=== PATIENT | female | born 1935 | race Caucasian/White ===

== ENCOUNTER 2017-10-29 17:05 | Inpatient (IN) | payer OTHER ==
[~2017-10-29] VITALS: Ht 149.9 cm; Wt 49.0 kg
--- NOTE | ~2017-10-29 | HC ---
[facility] [place] [address] CONSULTATION Name: KATHRYN KATZ Room #: 406-P [facility] M.R.#: [id number] Admission: 10/29/17 Attend Phys: Doni Napoles MD Discharge: 10/31/17 Date of : 31 Report #: [id number] THIS REPORT FOR: //name// CC: Doni Crabtree DATE OF SERVICE: 10/31/2017 REQUESTING PHYSICIAN: Baudilio Pickard DO CHIEF COMPLAINT: Back pain. HISTORY OF PRESENT ILLNESS: The patient is an 82-year-old female who initially presented on 10/29 with increasing back pain as well as increasingly stooped posture. The patient reportedly had 2 vertebral fractures in April, at which time she was evaluated for a cerebrovascular accident. The patient has subsequently been found here to have 4 additional fractures of unknown duration. The patient is no longer interested in kyphoplasty. She did have 2 performed in April and would like to discuss the possibility of palliative care options. Of note, the patient has a 1.8 albumin. She has wounds on her sacrum, has had decreased p.o. intake over several months' time including weight loss. The patient has had dysphagia to solids and has had difficulty with getting pills down. The patient also has again severe osteoporosis with multiple fractures of the spine. The patient reports that her biggest issue at this current point in time is pain. She denies any anxiety. She denies any constipation. She denies any other problems at this current point in time. ALLERGIES: TIZANIDINE. PAST MEDICAL HISTORY: Significant for vertebral fractures, also temporal CVA in 04/2017. She has had history of paroxysmal atrial fibrillation, also pulmonary fibrosis and dysphagia. PAST SURGICAL HISTORY: Vertebroplasty x 2, appendectomy. SOCIAL HISTORY: Previously at [facility], actually a daughter is involved in her care, Aby Feng. Additionally, the patient is currently DNR/DNI status and this is confirmed. Does not have any smoking, alcohol, illicit drug use history. MEDICATIONS: Fentanyl 25 mcg patch, lidocaine patch, Plavix 75 mg daily, aspirin 81 mg daily, Elavil 10 mg at bedtime, potassium chloride 10 mEq daily, Lasix 40 mg daily, Flexeril and Aldactone 50 mg daily. PRIMARY CARE PHYSICIAN: Mat Turner MD [address] [address] CONSULTATION Name: KATHRYN KATZ Room #: 406-P [facility] IN ..#: [id number] Admission: 10/29/17 Attend Phys: Doni Napoles MD Discharge: 10/31/17 Date of : 31 Report #: [id number] FAMILY HISTORY: Noncontributory. REVIEW OF SYSTEMS: GENERAL: Denies any fevers or chills. Does report recent weight loss. HEENT: Denies any visual changes. Denies any particular hearing loss. CARDIOVASCULAR: Denies chest pain, palpitations or edema. MUSCULOSKELETAL: Does report bilateral heel pain. Additionally, she reports back pain throughout her spine. ABDOMEN: Denies constipation, nausea, vomiting or diarrhea. Her last bowel movement was yesterday. PHYSICAL EXAMINATION: VITAL SIGNS: Temperature 36.7, pulse 91, respirations 18, blood pressure 80/48, 90% on room air. GENERAL: The patient is alert, although frequently falling asleep during my interview. She alerts to verbal stimuli and will respond to questions. She appears to be in moderate to severe pain at portions of time. HEENT: Extraocular muscles are intact. No scleral icterus, no conjunctival injection. CARDIOVASCULAR: Regular rate and rhythm without murmur. LUNGS: Clear to auscultation bilateral. No wheezes, rales or rhonchi. ABDOMEN: Soft. Diminished bowel sounds noted throughout, but nontender to palpation at this time. MUSCULOSKELETAL: She has exquisite tenderness to bilateral heel areas. LABORATORY DATA: These included hemoglobin 11.9, platelets 251. Creatinine 0.5. Albumin 1.8. AST 39, ALT 20. ASSESSMENT AND PLAN: 1. Multiple thoracic and lumbar fractures. At this current point in time, I believe she would benefit most from the addition of steroids. We will add dexamethasone as less associated with edema, start 10 mg IV loading dose. In addition, we will start twice daily 8 mg p.o. liquid formulation due to dysphagia. Additionally, we will start naproxen 500 mg twice daily, also liquid formulation. We will watch over the next 24 hours her current dosing regimen with regards to pain medication to ensure we can achieve a pain regimen outpatient. Would recommend at which time we have determined what she will need to switch to oral either liquid oxycodone or liquid morphine in addition to her fentanyl patch and also in addition to medications as previously noted. I am holding aspirin and her potassium chloride for gastrointestinal discomfort. We will continue Plavix given her stroke history. We will continue lidocaine patch. Discussed follow up in a.m. with regards to this. Discussed approximately for 25 minutes what hospice would entail. The patient's family and the patient are interested in meeting with hospice provider who are meeting with them today. They are considering inpatient hospice and I did discuss that [address] [address] CONSULTATION Name: KATHRYN KATZ Room #: 406-P [facility] .R.#: [id number] Admission: 10/29/17 Attend Phys: Doni Napoles MD Discharge: 10/31/17 Date of : 31 Report #: [id number] this may be a short-term stay in order to manage pain. I do believe she will qualify for her severe protein calorie malnutrition given her wounds, her albumin status and her decreased p.o. intake. I do believe the patient would benefit from more definitive pain management and will of course make adjustments depending on what her 24-hour morphine equivalents have shown with the addition of other medication. 2. Protein calorie malnutrition. As previously discussed, I believe this is due to a variety of factors including dysphagia as well as overall opiate use for pain management. I believe the patient to qualify for hospice based on this factor alone. She does also have pulmonary fibrosis, although the severity does not at this current point in time appear to warrant as well as her protein calorie malnutrition. 3. Pulmonary fibrosis. No doubt contributing to overall prognosis, appreciate primary team's recommendations on this. 4. Sacral wounds. Address per wound care team. I will continue to follow with the patient. I do think that there is opportunity for further medication adjustment if necessary for pain control at this time. I do believe that inpatient hospice care would be an appropriate measure. I did discuss that these measures and the possibility of future outpatient once pain has been stabilized more adequately. By: [id number] Jj Curry DO /nt
[2017-10-29 17:05] VITALS: BP 133/74
[~2017-10-29 17:05] MED LIST: ACCUNEB SO1.25 MG/1 INH; ADULT LOW DOSE81 MG PO; ALENDRONATE SOD10 MG PO; ALEVE220 MG PO; AZITHROMYCIN 2250 MG PO; AZO95 MG PO; BACTRIM DS TAB1 EACH PO; BONIVA; CELEBREX 200 M200 M1 PO; CIPROFLOXACIN500 M1 PO; CLOPIDOGREL75 MG PO; COLACE100 MG PO; FLAGYL500 MG PO; LAMISIL250 MG PO; MIRALAX17 GM PO; MOBIC15 MG PO; NORCO 5-325 TA1 EACH PO; OMEPRAZOLE 20 M20 M1 PO; SENOKOT-S1 TA1 PO; SPIRONOLACTONE50 MG PO; ZOFRAN ODT4 MG PO
[2017-10-29] MEDS ORDERED: AMITRIPTYLINE H10 M3 PO (17:45)
[2017-10-29] MEDS ORDERED: LASIX 40 MG TAB40 M2 PO (17:46)
[2017-10-29] MEDS ORDERED: K-DUR10 MEQ PO (17:47)
[2017-10-29] MEDS ORDERED: HYDROCODONE-AP1 EAC6 PO (17:47)
[2017-10-29] MEDS ORDERED: VITAMIN E400 UNIT PO (17:48)
[2017-10-29] MEDS ORDERED: CYCLOBENZAPRINE5 MG PO (17:49)
[2017-10-29] MEDS ORDERED: FLONASE 0.05%50 MCG NASAL (17:49)
[2017-10-29] MEDS ORDERED: DURAGESIC25 MCG/HR TRANSDERM (17:50)
[2017-10-29 20:40] LABS: ABSOLUTE NEUTROPHILS 9.2 thou/uL (1.4-8.2); BASOPHILS 0.8 % (0.0-2.0); EOSINOPHILS 0.1 % (0.0-3.0); HEMATOCRIT 43.6 % (37.0-47.0); LYMPHOCYTES 8.7 % (24.0-44.0); MCH 34.2 pg (26.0-34.0); MCHC 34.4 g/dL (28.0-37.0); MCV 99.4 fL (80.0-100.0); MONOCYTES 8.9 % (1.0-8.0); PLATELET COUNT 333 thou/uL (150-400); POLYS 81.5 % (36.0-66.0); RBC 4.39 mil/uL (4.20-5.00); RDW 14.1 % (10.5-14.5); WBC 11.3 thou/uL (4.0-11.0)
[2017-10-29 20:47] LABS: CALCIUM 8.9 mg/dL (8.5-10.1); CREATININE 0.8 mg/dL (0.6-1.0); POTASSIUM 4.1 mmol/L (3.5-5.1)
[2017-10-29 20:53] LABS: ALBUMIN 2.6 g/dL (3.4-5.0); DIRECT BILIRUBIN 0.8 mg/dL (<0.1-0.3); MAGNESIUM 1.7 mg/dL (1.8-2.4); TOTAL BILIRUBIN 1.3 mg/dL (<0.1-1.0); TOTAL PROTEIN 6.9 g/dL (6.4-8.2)
[2017-10-29 21:59] LABS: URINE BLOOD 2+ (Negative); URINE CLARITY SL CLOUDY; URINE GLUCOSE-RANDOM* NEGATIVE (Negative); URINE KETONES 1+ (Negative); URINE LEUKOCYTES-REFLEX NEGATIVE (Negative); URINE NITRITE-REFLEX NEGATIVE (Negative); URINE PROTEIN (DIPSTICK) NEGATIVE (Negative)
[2017-10-29 22:01] VITALS: BP 104/59
[2017-10-29 22:02] LABS: ICTOTEST (BILI CONFIRMATORY) Negative (Negative); URINE BILIRUBIN NEGATIVE (Negative); URINE COLOR DARK YELLOW
[2017-10-29 22:13] LABS: CRYSTALS None Seen /LPF (None Seen); SQUAMOUS 0-3 Few /LPF (0-3); URINE WBC-REFLEX 0-5 Rare /HPF (0-5)
[2017-10-29 22:14] LABS: BACTERIA-REFLEX 1-9 Few /HPF (None Seen); HYALINE CASTS 4-10 Moderate /LPF (None Seen); MUCUS 4-6 Moderate strn/LPF (None Seen)
[2017-10-30 03:41] VITALS: BP 96/49
[2017-10-30 08:10] VITALS: BP 102/56
[2017-10-30 16:00] VITALS: BP 81/44
[2017-10-30 20:00] VITALS: BP 90/44
[2017-10-31 04:00] VITALS: BP 98/43
[2017-10-31 05:26] LABS: ABSOLUTE NEUTROPHILS 3.5 thou/uL (1.4-8.2); BASOPHILS 0.2 % (0.0-2.0); EOSINOPHILS 3.8 % (0.0-3.0); HEMATOCRIT 34.6 % (37.0-47.0); LYMPHOCYTES 26.3 % (24.0-44.0); MCH 34.4 pg (26.0-34.0); MCHC 34.4 g/dL (28.0-37.0); MONOCYTES 13.8 % (1.0-8.0); POLYS 55.9 % (36.0-66.0); RBC 3.46 mil/uL (4.20-5.00); WBC 6.3 thou/uL (4.0-11.0)
[2017-10-31 05:38] LABS: CALCIUM 8.2 mg/dL (8.5-10.1); CREATININE 0.5 mg/dL (0.6-1.0); POTASSIUM 3.4 mmol/L (3.5-5.1)
[2017-10-31 05:39] LABS: HEMOGLOBIN 11.9 gm/dL (12.0-15.0); PLATELET COUNT 251 thou/uL (150-400)
[2017-10-31 08:46] VITALS: BP 80/48
[2017-10-31 11:26] LABS: ALBUMIN 1.8 g/dL (3.4-5.0); MAGNESIUM 1.7 mg/dL (1.8-2.4); TOTAL BILIRUBIN 0.9 mg/dL (<0.1-1.0); TOTAL PROTEIN 4.9 g/dL (6.4-8.2)
[2017-10-31] MEDS ORDERED: BISACODYL SUPP10 MG RECTAL (16:19)
[2017-10-31] MEDS ORDERED: DEXAMETHASONE 44 M1 PO (16:19)
[2017-10-31] MEDS ORDERED: ONDANSETRON HCL4 M1 IV PUSH (16:19)
[2017-10-31] MEDS ORDERED: MIRALAX17 GM PO (16:19)
[2017-10-31] MEDS ORDERED: LIDOPATCH1 EACH TRANSDERM (16:19)
[2017-10-31 18:37] VITALS: BP 69/34
== END 2017-10-31 18:00 | disposition hospice, inpatient (51) | DRG 542 ==
LOC: ER 17:05 → EROBS 20:35 → 4N 20:35
PROVIDERS: Emergency Medicine; Hospitalist
DX: M48.56XA Collapsed vertebra, not elsewhere classified, lumbar region, initial encounter for fracture (principal); E43 Unspecified severe protein-calorie malnutrition; M48.54XA Collapsed vertebra, not elsewhere classified, thoracic region, initial encounter for fracture; I48.0 Paroxysmal atrial fibrillation; J84.10 Pulmonary fibrosis, unspecified; Z66 Do not resuscitate; L89.221 Pressure ulcer of left hip, stage 1; L89.211 Pressure ulcer of right hip, stage 1; L89.151 Pressure ulcer of sacral region, stage 1; Z86.73 Personal history of transient ischemic attack (TIA), and cerebral infarction without residual deficits; Z90.49 Acquired absence of other specified parts of digestive tract; Z68.21 Body mass index [BMI] 21.0-21.9, adult; Z79.51 Long term (current) use of inhaled steroids; Z79.82 Long term (current) use of aspirin; Z79.899 Other long term (current) drug therapy
CPT/HCPCS: 10790